=== PATIENT | male | born 1980 | race Two or more races ===

== ENCOUNTER 2019-09-30 07:07 | Emergency (ER) | payer MEDICAID ==
[~2019-09-30] VITALS: Ht 172.7 cm; Wt 81.5 kg
[~2019-09-30 07:07] MED LIST: GLIP10TA13 PO; LISI-167 PO; METF10002 PO
[2019-09-30 07:11] VITALS: BP 158/93
--- NOTE | 2019-09-30 07:25 | NUR ---
FIRST CONTACT WITH PT. 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 PT'S AOX4. RESPS EVEN AND UNLABORED. PA AT BEDSIDE TO EVALUATE AT THIS TIME.
--- NOTE | 2019-09-30 07:39 | NUR ---
bg 277 at this time. pa/edmd notified.
--- NOTE | 2019-09-30 07:58 | NUR ---
Patient given discharge instructions and they have confirmed that they understand the instructions. Patient ambulatory with steady gait.
== END 2019-09-30 07:59 | disposition home or self-care (01) ==
LOC: ED 07:30
DX: E11.65 Type 2 diabetes mellitus with hyperglycemia (principal); I10 Essential (primary) hypertension; Z76.0 Encounter for issue of repeat prescription
CPT/HCPCS: 82962; 99283

== ENCOUNTER 2019-11-30 10:22 | Emergency (ER) | payer MEDICAID ==
[~2019-11-30] VITALS: Ht 172.7 cm; Wt 79.3 kg
--- NOTE | 2019-11-30 10:40 | NUR ---
PATIENT ARRIVES WITH ALL OVER BODY ACHES, SOB, CHEST PRESSURE RESPIRATORY FOR SINCE LAST SATURDAY - SIX DAYS. HE IS ALSO OUT OF HIS DIABETIC MEDICATION GLIPIZIDE AND METFORMIN FOR TWO WEEKS. TRAVELED TO [place] AND [place] IN LAST TWO WEEKS.
[2019-11-30] MEDS ORDERED: METF10007 PO (10:54)
[2019-11-30 11:40] LABS: ALBUMIN 3.7 g/dL (3.4-5.0); ANION GAP 9 mmol/L (5-15); CALCIUM 9.1 mg/dL (8.5-10.1); CHLORIDE 104 mmol/L (98-107)
[2019-11-30 11:51] LABS: BASOPHILS # (AUTO) 0.02 x10^3/uL (0-0.1); BASOPHILS % (AUTO) 0 % (0-1); EOSINOPHILS # (AUTO) 0.08 x10^3/uL (0-0.4); EOSINOPHILS % (AUTO) 1 % (1-7); LYMPHOCYTES # (AUTO) 1.66 x10^3/uL (1-3.4); LYMPHOCYTES % (AUTO) 23 % (22-44); MD NO; MEAN CORPUSCULAR HEMOGLOBIN 30.1 pg (27.5-34.5); MEAN CORPUSCULAR HGB CONC 34.4 g/dL (33.2-36.2); MEAN CORPUSCULAR VOLUME 87.3 fL (81-97); MEAN PLATELET VOLUME 8.7 fL (7.4-10.4); MONOCYTES # (AUTO) 0.26 x10^3/uL (0.2-0.8); MONOCYTES % (AUTO) 4 % (2-9); NEUTROPHILS # (AUTO) 5.12 x10^3/uL (1.8-6.8); NEUTROPHILS % (AUTO) 72 % (42-75); PLATELET COUNT 254 x10^3/uL (130-400); RED BLOOD COUNT 4.97 x10^6/uL (4.38-5.82); RED CELL DISTRIBUTION WIDTH 12.7 % (9.4-14.8)
[2019-11-30 13:24] VITALS: BP 138/90
== END 2019-11-30 13:26 | disposition home or self-care (01) ==
LOC: ED 10:57
DX: B34.9 Viral infection, unspecified (principal); E11.65 Type 2 diabetes mellitus with hyperglycemia; I10 Essential (primary) hypertension; Z76.0 Encounter for issue of repeat prescription
CPT/HCPCS: 36415; 71045; 80048; 82040; 85025; 93005; 99285